=== PATIENT | female | born 1960 | race Caucasian/White ===

== ENCOUNTER 2017-11-20 09:13 | Inpatient (IN) | payer OTHER ==
[~2017-11-20] VITALS: Ht 152.4 cm; Wt 92.5 kg
[~2017-11-20 09:13] MED LIST: Norvasc PO
[2017-11-20 10:57] LABS: BASOPHIL (%) 0.3 % (0-1); EOSINOPHIL (%) 1.5 % (0-5); EOSINOPHIL COUNT 0.1 K/uL (0-0.3); HEMATOCRIT 48.6 % (36.0-46.0); HEMOGLOBIN 16.2 G/DL (11.9-15.5); IMMATURE GRANULOCYTE (%) 0.3 % (0.0-0.7); LYMPHOCYTE (%) 15.5 % (15-42); MCH 29.8 PG (29.0-34.0); MCHC 33.3 G/DL (30.0-36.0); MCV 89.3 FL (83-99); MONOCYTE (%) 5.2 % (3-12); MONOCYTE COUNT 0.3 K/uL (0-0.8); NEUTROPHIL (%) 77.2 % (45-76); NEUTROPHIL COUNT 4.7 K/uL (1.8-6.4); PLATELET COUNT 129 K/uL (156-360); RBC DIS.WIDTH-CV 13.1 % (11.8-14.6); RBC DIS.WIDTH-SD 42.9 % (39-53); RED BLOOD COUNT 5.44 M/uL (3.80-5.20); WHITE BLOOD COUNT 6.1 K/uL (4.1-10.2)
[2017-11-20 11:05] LABS: INTER. NORMALIZED RATIO 1.1
[2017-11-20 11:07] LABS: PTT 31.9 SEC (25-37)
[2017-11-20 11:08] LABS: ALBUMIN 4.1 g/dL (3.2-4.8); CHLORIDE 108 mEq/L (99-109); POTASSIUM 4.3 mEq/L (3.7-5.4); SODIUM 142 mEq/L (136-147)
[2017-11-20 11:09] LABS: MAGNESIUM 2.4 mg/dL (1.3-2.7)
[2017-11-20 11:11] LABS: GLUCOSE 102 mg/dL (70-99); TOTAL PROTEIN 6.8 g/dL (6.4-8.3)
[2017-11-20 11:13] LABS: TOTAL BILIRUBIN 0.6 mg/dL (0.0-1.0)
[2017-11-20 11:14] LABS: ALKALINE PHOSPHATASE 60 IU/L (3-129)
[2017-11-20 11:15] LABS: CREATININE 0.7 mg/dL (0.6-1.3); GFR ESTIMATE (CALCULATED) > 59 mL/min/
[2017-11-20 11:16] LABS: AST (GOT) 16 IU/L (2-34); UREA NITROGEN (BUN) 7 mg/dL (9-23)
[2017-11-20 11:18] LABS: ALT (GPT) 10 IU/L (3-49); LIPASE 13 U/L (1.0-51.0)
[2017-11-20 20:53] VITALS: BP 138/75
[2017-11-20 21:20] VITALS: BP 138/75
[2017-11-20 23:36] VITALS: BP 156/88
[2017-11-21 03:11] VITALS: BP 136/68
[2017-11-21 05:26] LABS: HEMATOCRIT 49.6 % (36.0-46.0); HEMOGLOBIN 16.2 G/DL (11.9-15.5); MCHC 32.7 G/DL (30.0-36.0); MCV 88.7 FL (83-99); RBC DIS.WIDTH-SD 42.7 % (39-53); RED BLOOD COUNT 5.59 M/uL (3.80-5.20); WHITE BLOOD COUNT 10.8 K/uL (4.1-10.2)
[2017-11-21 05:56] LABS: CHLORIDE 109 MEQ/L (99-109); CREATININE 0.6 MG/DL (0.6-1.3); GFR ESTIMATE (CALCULATED) > 59 mL/min/; GLUCOSE 148 mg/dL (70-99); POTASSIUM 4.4 MEQ/L (3.7-5.4); SODIUM 141 MEQ/L (136-147); UREA NITROGEN (BUN) 7 mg/dL (9-23)
[2017-11-21 06:42] LABS: PLAT.SUFFICIENCY DECREASED; PLATELET COUNT 155 K/uL (156-360)
[2017-11-21 07:58] VITALS: BP 140/73
[2017-11-21] MEDS ORDERED: HYDROCODON-ACE1 EAC7 PO (11:26)
[2017-11-21 12:39] VITALS: BP 153/72
== END 2017-11-21 13:36 | disposition home or self-care (01) | DRG 355 ==
LOC: EME 09:13 → SDC 16:51 → 2SOUTH 18:36 → ENRESERV 18:40 → 3EAST 20:27
PROVIDERS: Emergency Medicine; Surgery
PROC: 0WQF0ZZ Repair Abdominal Wall, Open Approach (ICD-10-PCS; principal; 2017-11-20)
DX: K43.0 Incisional hernia with obstruction, without gangrene (principal); F17.200 Nicotine dependence, unspecified, uncomplicated; Z79.899 Other long term (current) drug therapy; I10 Essential (primary) hypertension; Z68.36 Body mass index [BMI] 36.0-36.9, adult; E66.9 Obesity, unspecified
CPT/HCPCS: 74177; 80048; 80053; 83690; 83735; 85025; 85027; 85610; 85730; 88302; 94010; 94640; 94640 76; 94799; 99202; 99281; 99285; J0131; J0690; J1100; J1170; J1650; J1885; J2250; J2405; J3010; J7030; S0028